=== PATIENT | male | born 1995 | race Caucasian/White ===

== ENCOUNTER 2025-01-25 17:02 | Emergency (ER) | payer OTHER, BC ==
[2025-01-25] MEDS: Lidocaine 1% with EPINEPHrine 1:100,000 20 ML MDV INFILT ONE (17:59)
[2025-01-25] MEDS: Diphtheria,Pertussis(Acell),Tetanus Vaccine 0.5 ML Syringe IM ONE (18:00)
== END 2025-01-25 18:20 | disposition home or self-care (01) ==
LOC: VM.ED 17:02
DX: S81.811A Laceration without foreign body, right lower leg, initial encounter (principal); W19.XXXA Unspecified fall, initial encounter; Z23 Encounter for immunization
CPT/HCPCS: 12005; 90471; 90715; 99282; 99282-25; J2004